=== PATIENT | male | born 1955 | race Caucasian/White ===

== ENCOUNTER 2017-03-25 04:13 | Emergency (ER) | payer SELFPAY ==
[~2017-03-25] VITALS: Ht 177.8 cm; Wt 88.5 kg
[2017-03-25] MEDS ORDERED: NS 100 ML (IVPB) BAG IV ONE (04:45)
[2017-03-25] MEDS ORDERED: IOHEXOL 350 MG/ML 100 ML (OMNIPAQUE 350) VIAL IV ONE (04:45)
--- NOTE | 2017-03-25 04:47 | ED GI ---
General Chief Complaint: Abdominal/GI Problems Stated Complaint: AB PAIN Nursing Triage Note: PAIN STARTED YESTERDAY AROUND 5P. PAIN IN RLQ AND IN THE MIDDLE OF HIS BACK. TRANSFER FROM [facility]. Sepsis Screen: No Definite Risk Source of Information: Patient Exam Limitations: No Limitations History of Present Illness Time Seen By Provider: 04:45 Initial Comments Patient developed gradual onset of right sided abdominal pain around 36 hours ago. The pain is gradually worsened and radiates to his back. It is associated with nausea and vomiting. Pain became so severe this morning that he presented to [place] [facility], was noted to have a white count of 20,000 and was referred here for CT scanning. States pain is worse with any movement. Allergies and Home Medications Allergies Coded Allergies: No Known Drug Allergies (Unverified , 03/25/17) Home Medications Oxycodone HCl/Acetaminophen 1 Each Tablet, 1-2 EACH PO Q4H PRN for PAIN-SEVERE, #15 Prescribed by: TRUMAN WILKINS on 03/25/17 0518 Review of Systems Constitutional: no symptoms reported Respiratory: No Symptoms Reported Cardiovascular: No Symptoms Reported Gastrointestinal: Abdominal Pain, Denies Diarrhea, Nausea, Vomiting Genitourinary: No Symptoms Reported Musculoskeletal: back pain Skin: no symptoms reported All Other Systems Reviewed Negative Unless Noted: Yes Past Arhlouu-Efszyi-Wyeinm Hx Patient Social History Alcohol Use: Denies Use Recreational Drug Use: No Smoking Status: Current Everyday Smoker Type Used: Cigarettes Recent Foreign Travel: No Contact w/Someone Who Travel: No Recent Infectious Disease Expo: No Recent Hopitalizations: No Cardiovascular Cardiac Disorders: High Cholesterol, Hypertension Gastrointestinal Gastrointestinal Disorders: Gastroesophageal Reflux Reviewed Nursing Assessment Reviewed/Agree w Nursing PMH: Yes Physical Exam Vital Signs VS - Last 72 Hours, by Label 03/25/17 04:19 Temp 98.4 Pulse 79 Resp 19 B/P (MAP) 175/104 Pulse Ox 96 O2 Delivery Room Air Capillary Refill : Less Than 3 Seconds General Appearance: WD/WN, no apparent distress HEENT: pharynx normal Neck: supple Respiratory: lungs clear, normal breath sounds Cardiovascular: regular rate, rhythm, no edema Gastrointestinal: soft, No guarding, No rebound, tenderness (tender right lower quadrant) Extremities: normal inspection Neurologic/Psychiatric: alert, normal mood/affect Skin: normal color, warm/dry Progress/Results/Core Measures Results/Orders My Orders Orders - TRUMAN WILKINS MD Ct Abdomen/Pelvis W (03/25/17 04:17) Iohexol Injection (Omnipaque 350 Mg/Ml 1 (03/25/17 04:45) Ns (Ivpb) (Sodium Chloride 0.9% Ivpb Bag (03/25/17 04:45) Fentanyl Injection (Sublimaze Injection (03/25/17 05:00) Ondansetron Injection (Zofran Injectio (03/25/17 05:00) Fentanyl Injection (Sublimaze Injection (03/25/17 04:55) Ondansetron Injection (Zofran Injectio (03/25/17 04:55) Alfuzosin Tablet (Uroxatral Tablet) (03/25/17 05:30) Amlodipine Tablet (Norvasc Tablet) (03/25/17 05:30) Amlodipine Tablet (Norvasc Tablet) (03/25/17 05:16) Medications Given in ED Current Medications Medications Dose Ordered Sig/Kamini Route Start Time Stop Time Status Last Admin Dose Admin Amlodipine Besylate 5 mg ONCE ONCE PO 03/25/17 05:30 03/25/17 05:31 DC 03/25/17 05:22 5 MG Fentanyl Citrate 100 mcg ONCE ONCE IVP 03/25/17 05:00 03/25/17 05:01 DC 03/25/17 05:02 100 MCG Iohexol 100 ml ONCE ONCE IV 03/25/17 04:45 03/25/17 04:47 DC 03/25/17 04:46 100 ML Ondansetron HCl 4 mg STK-MED ONCE .ROUTE 03/25/17 04:55 03/25/17 05:00 DC 03/25/17 05:02 4 MG Sodium Chloride 100 ml ONCE ONCE IV 03/25/17 04:45 03/25/17 04:47 DC 03/25/17 04:46 80 ML Vital Signs/I&O Vital Sign - Last 12Hours 03/25/17 04:19 Temp 98.4 Pulse 79 Resp 19 B/P (MAP) 175/104 Pulse Ox 96 O2 Delivery Room Air Blood Pressure Mean: [address] shows mild to moderate right-sided hydronephrosis and perinephric stranding and delayed enhancement of the right kidney. A 3 mm stone is seen in the right UVJ. The appendix is normal Departure Communication Progress Notes CT findings discussed the patient. He is much more calm after IV fentanyl. Blood pressure down to 175/95. Patient appears comfortable but his blood pressure remained elevated. I informed him to follow-up with his primary care physician regarding blood pressure management. He is also notified of the CT findings of lung nodules Impression Impression: Primary Impression: Right ureteral calculus Disposition: HOME, SELF-CARE Condition: Stable Departure-Patient Inst. Decision time for Depature: 05:17 Referrals: NO,LOCAL PHYSICIAN (PCP) Primary Care Physician Patient Instructions: Kidney Stones (DC) Scripts Oxycodone HCl/Acetaminophen (Percocet 5-325 mg Tablet) 1 Each Tablet 1-2 EACH PO Q4H Y for PAIN-SEVERE, #15 TAB Prov: TRUMAN WILKINS MD 03/25/17 TRUMAN WILKINS MD March 25, 2017 04:47
[2017-03-25] MEDS ORDERED: ONDANSETRON 4 MG/2 ML (SDV) Z0FRAN ONE (04:55)
[2017-03-25] MEDS ORDERED: fentaNYL INJECTION 100 MCG/2 ML AMP ONE (04:55)
[2017-03-25] MEDS ORDERED: ONDANSETRON 4 MG/2 ML (SDV) Z0FRAN IVP ONE (05:00)
[2017-03-25] MEDS ORDERED: fentaNYL INJECTION 100 MCG/2 ML AMP IVP ONE (05:00)
[2017-03-25] MEDS ORDERED: TAMSULOSIN 0.4 MG (FLOMAX) CAP PO ONE (05:15)
[2017-03-25] MEDS ORDERED: amLODIPine 5 MG (NORVASC) TAB ONE (05:16)
[2017-03-25] MEDS ORDERED: OXYC-197 PO (05:18)
[2017-03-25] MEDS ORDERED: ALFUZOSIN HCL 10 MG TAB (UROXATRAL) PO SCH (05:30)
[2017-03-25] MEDS ORDERED: amLODIPine 5 MG (NORVASC) TAB PO ONE (05:30)
[2017-03-25 06:01] VITALS: BP 185/99
--- NOTE | 2017-03-25 08:40 | Diagnostic Imaging Report ---
Clinical indication: Patient with right-sided abdominal/back pain onset yesterday evening. No surgical history. Patient is transferred here from [facility] for CT scan. Exam: CT scan of the abdomen and pelvis performed with 100 cc of Omnipaque 350 IV contrast. Coronal sagittal reformatted images are created. Comparison: None. Findings: There is mild bibasilar atelectasis. There is multiple small noncalcified nodules in both lung bases with the largest measuring 7 mm in the lateral left lower lobe region seen on series 2, image 9. There are small degenerative spurs involving thoracic spine and lumbar spine. There is lower lumbar spine facet arthropathy. There is a roughly 3 mm obstructive stone within the distal left ureter/UVJ region. There is associated mild to moderate right hydronephrosis with right periureteral and perinephric fat stranding. There is also delayed contrast opacification of the right kidney and delayed excretion of the right kidney suggesting significant obstruction. There are no other renal stones seen. There are subcentimeter low-density areas which are circumscribed involving both kidneys which are too small to characterize, but cyst may be considered. Otherwise both kidneys are unremarkable. The liver, spleen, pancreas, gallbladder, and adrenal glands are unremarkable. There is a small hiatal hernia seen. The colon, appendix, small bowel and remainder of the stomach is unremarkable. There is no intra-abdominal free air or free fluid. There is no significant lymphadenopathy. The bladder is partially fluid distended and unremarkable as visualized. There is diffuse gallbladder wall thickening which may be related to incomplete distention. Partially calcified prostate gland is seen. The extra-abdominal and extra pelvic soft tissue structures are unremarkable. Impression: 1: There is an obstructive 3 mm stone within the distal right ureter in the region of the UVJ. There is associated mild to moderate right hydronephrosis and right periureteral and perinephric fat stranding. 2: There is no other acute abdominal or pelvic process seen. 3: There is multiple small noncalcified nodules involving both lower lobe regions with the largest measuring 7 mm in the lateral left lung base. Followup chest CT scan in 6 months is suggested to evaluate for resolution. I agree with [employer] report. Dictated by: Dictated on workstation # [id number]
== END 2017-03-25 06:01 | disposition home or self-care (01) ==
LOC: EDUNIT# 04:13 → ER 04:15
DX: N13.2 Hydronephrosis with renal and ureteral calculous obstruction (principal); R91.8 Other nonspecific abnormal finding of lung field; I10 Essential (primary) hypertension; F17.210 Nicotine dependence, cigarettes, uncomplicated
CPT/HCPCS: 74177

== ENCOUNTER 2018-02-04 09:03 | Day surgery (SDC) | payer OTHER ==
[2018-02-04] VITALS (11 sets, daily range): BP systolic 149–174; BP diastolic 75–91
[~2018-02-04] VITALS: Ht 180.3 cm; Wt 86.2 kg
[~2018-02-04 09:03] MED LIST: OXYC-197 PO
--- OUTSIDE RECORDS SUMMARY | 2018-02-04 09:08 | XMS REPORT ---
Author Author MARIALUISA GARCIA [facility] Address [address] [place] [address] Care Team Providers Care Vacuum Tester Cans Name Role Phone MARIALUISA GARCIA Unavailable PROBLEMS Type Condition ICD9-CM Code [id number] Code Onset Dates Condition Status SNOMED Code Problem Mixed hyperlipidemia E78.2 Active 914117002 Problem Elevated platelet count D47.3 Active 206055105 Problem Hypercholesterolemia E78.0 Active 73892137 Problem Essential (primary) hypertension I10 Active 79138073 Problem Hypertension, essential I10 Active 63957201 Problem Vertigo R42 Active 776685828 ALLERGIES No Information SOCIAL HISTORY Never Assessed PLAN OF CARE VITAL SIGNS MEDICATIONS Medication Instructions Dosage Frequency Start Date End Date Duration Status Cozaar 25 mg Orally Once a day, needs an appt for further refills 1 tablet 0 days Active RESULTS No Results PROCEDURES No Known procedures IMMUNIZATIONS No Known Immunizations MEDICAL (GENERAL) HISTORY Type Description Date Medical History hypertension Medical History hyperlipidemia Medical History acid reflux
--- OUTSIDE RECORDS SUMMARY | 2018-02-04 09:09 | XMS REPORT ---
Author Author FINN LONDON [facility] Address [address] [place] [address] Care Team Providers Care Tdp Displays Analyst Name Role Phone FINN LONDON Unavailable PROBLEMS Type Condition ICD9-CM Code [id number] Code Onset Dates Condition Status SNOMED Code Problem Mixed hyperlipidemia E78.2 Active 147208721 Problem Elevated platelet count D47.3 Active 171119952 Problem Hypercholesterolemia E78.0 Active 32728970 Problem Essential (primary) hypertension I10 Active 45654460 Problem Hypertension, essential I10 Active 26714691 Problem Vertigo R42 Active 390685563 ALLERGIES No Information SOCIAL HISTORY Never Assessed PLAN OF CARE VITAL SIGNS Height 70 in 2017-03-29 Blood pressure systolic 180 mmHg 2017-03-29 Blood pressure diastolic 90 mmHg 2017-03-29 MEDICATIONS Medication Instructions Dosage Frequency Start Date End Date Duration Status Cozaar 100 MG Orally Once a day, 1/2 tablet 0 days Active Hydrochlorothiazide 12.5 MG Orally Once a day 1 tablet in the morning 24h Mar, Active Omeprazole 40 mg Orally Once a day before a meal take 1 capsule Jul, Active Norvasc 5 MG Orally Once a day 2 tablet 24h Active RESULTS No Results PROCEDURES No Known procedures IMMUNIZATIONS No Known Immunizations MEDICAL (GENERAL) HISTORY Type Description Date Medical History hypertension Medical History hyperlipidemia Medical History acid reflux
--- OUTSIDE RECORDS SUMMARY | 2018-02-04 09:09 | XMS REPORT ---
Author Author MARIALUISA GARCIA [facility] Address [address] [place] [address] Care Team Providers Care Side Sawyer Name Role Phone MARIALUISA GARCIA Unavailable PROBLEMS Type Condition ICD9-CM Code BER31-DD Code Onset Dates Condition Status SNOMED Code Problem Abnormal CBC R79.89 Active 297617548 Problem Essential (primary) hypertension I10 Active 92754568 Problem Lymphocytosis D72.820 Active 01858405 Problem Monocytosis D72.821 Active 64828151 Problem Right leg claudication I73.9 Active 727140256 Problem Mixed hyperlipidemia E78.2 Active 938919900 Problem Vertigo R42 Active 746684156 Problem Hypercholesterolemia E78.0 Active 81275443 Problem Elevated platelet count D47.3 Active 404949818 Problem Hypertension, essential I10 Active 25543850 ALLERGIES No Information ENCOUNTERS Encounter Location Date Diagnosis [facility] [place] [id number] [id number] [id number] Dec, Hypertension, essential I10 ; Mixed hyperlipidemia E78.2 ; Dyspnea on exertion R06.09 and Tobacco use Z72.[address] [id number][place] [id number] Dec, [id number] [id number] Dec, [address] [id number] [id number] Nov, Dyspnea on exertion R06.09 ; Vasovagal syncope R55 ; Hypertension , essential I10 ; Mixed hyperlipidemia E78.2 ; Right leg claudication I73.9 and Tobacco use Z72.[address] [id number][place] [id number] Nov, [place] [id number] [place] [address] [id number] Oct, Hypertension, essential I10 [facility] [place] [id number] [place] [address] [id number] Sep, Abnormal CBC R79.89 ; Monocytosis D72.821 and Lymphocytosis D72.820 [facility] [id number] [place] [address] [id number] Sep, Abnormal CBC R79.89 ; Monocytosis D72.821 and Lymphocytosis D72.820 [facility] [place] [id number] [place] [address] [id number] Sep, Hypertension, essential I10 ; Mixed hyperlipidemia E78.2 ; Dizziness R42 ; Tobacco abuse Z72.0 and Tobacco abuse counseling Z71.6 [facility] [place] [address] [id number] Sep, Hypertension, essential I10 [facility] [place] [id number] [place] [address] [id number] Aug, Mixed hyperlipidemia E78.2 [facility] [place] [id number] [place] [address] [id number] Jul, [facility] [place] [id number] [place] [address] [id number] Jun, Hypertension, essential I10 [facility] [place] [id number] [place] [address] [id number] Jun, Hypertension, essential I10 [facility] [place] [id number] [place] [address] [id number] May, [facility] [place] [id number] [place] [address] [id number] May, Hypertension, essential I10 and Mixed hyperlipidemia E78.2 [facility] [place] [id number] [place] [address] [id number] Apr, [facility] [address] [id number] Mar, [facility] [id number] [place] [address] [id number] Mar, [facility] [address] [id number] Mar, [facility] [address] [id number][place] [id number] Mar, [facility] [id number] [place] [address] [id number] February, Mixed hyperlipidemia E78.2 [facility] [address] [id number] [place] [id number] February, [facility] [address] [id number] [place] [address] [id number] February, [facility] [address] [id number] [place] [id number] February, Hypertension, essential I10 ; Mixed hyperlipidemia E78.2 and Heartburn R12 [facility] [address] [id number] [place] [address] [id number] February, [facility] [address] [id number] [place] [address] [id number] February, Hypertension, essential I10 [facility] [id number] [place] [address] [id number] Jan, [facility] [address] [id number] [place] [address] [id number] Jan, [facility] [id number] [place] [address] [id number] Dec, Mixed hyperlipidemia E78.2 [facility] [place] [id number] [place] [address] [id number] Nov, Heartburn R12 [facility] [place] [id number] [place] [address] [id number] Sep, [facility] [id number] [place] [address] [id number] Sep, Hypertension, essential I10 ; Mixed hyperlipidemia E78.2 ; Heartburn R12 and Elevated platelet count D47.3 [facility] [id number] [place] [address] [id number] Aug, [facility] [id number] [place] [address] [id number] Jul, [facility] [address] [place] [address] [id number] [place] [address] [id number] Jul, Hypertension, essential I10 ; Vertigo R42 ; Elevated platelet count D47.3 and Elevated glucose level R73.09 [facility] [id number] [place] [address] [id number] Jun, Hypertension, essential I10 ; Hypercholesterolemia E78.0 ; Vertigo R42 ; Heartburn R12 ; Elevated platelet count D47.3 and Elevated glucose level R73.09 [facility] [id number] [place] [address] [id number] Jun, [facility] [id number] [place] [address] May, [facility] [id number] [place] [address] [id number] May, [facility] [address] [id number] May, [facility] [id number] [place] [address] [id number] Apr, [facility] [address] [id number] Mar, [facility] [id number] [place] [address] [id number] Mar, [facility] [address] [id number] Mar, Hypertension, essential I10 and Hypercholesterolemia E78.0 [facility] [id number] [place] [address] [id number] Dec, Hypertension, essential I10 [facility] [id number] [place] [address] [id number] Sep, [facility] [id number] [place] [address] [id number] Sep, Essential (primary) hypertension I10 [facility] [address] [id number] Sep, Hypertension, essential I10 [facility] [id number] [place] [address] [id number] Sep, Hypertension, essential I10 [facility] [id number] [place] [address] [id number] Aug, [facility] [address] [id number], [place] [id number] Jul, [facility] [address] [id number], [place] [id number] Jul, [facility] [address] [id number], [place] [id number] Jul, Hypertension, essential I10 [facility] [address] [id number], [place] [id number] Jul, [facility] [address] [id number], [place] [id number] Jun, [facility] [id number] [place] [address] [id number] May, [facility] [id number] [place] [address] [id number] Mar, Pharyngitis 462 [facility] [address] [id number], [place] [id number] Mar, [facility] [address] [id number], [place] [id number] Mar, [facility] [address] [id number], [place] [id number] Mar, Right low back pain 724.2 [facility] [address] [id number], [place] [id number] February, [facility] [address] [place] [id number], [place] [id number] February, [facility] [id number], [place] [id number] February, [facility] [address] [id number], [place] [id number] February, [facility] [address] [id number] [address] Jan, [facility] [address]00565100[place], [place] [address] Jan, [facility] [address] [id number], [place] [id number] Nov, [facility] [place] [facility] [address] [facility] [id number][place] [address] Nov, [facility] [address] [facility] [id number] [place] [id number] Sep, [facility] [place] [facility] [address] [facility] [id number][place] [address]46 Sep, [facility] [address] [facility] [id number], [place] [id number] Sep, [facility] [place] [facility] [address] [facility] [id number], [place] [address]- 5195 Sep, [facility] [address] [facility] [id number], [place] [id number] Aug, [facility] [place] [facility] [address] [id number] [address] Aug, [facility] [address] [facility] [id number], [place] [id number] Aug, [facility] [place] [facility] [address] [facility] [id number], [place] [address]- 4[address] Aug, [facility] [place] [facility] [address] [facility] [id number], [place] [address]- 98[address] Aug, [facility] [address] [facility] [id number], [place] [id number] Aug, [facility] [place] [facility] [address] [facility] [id number], [place] [address]- 9716 Aug, [facility] [address] [facility] [id number], [place] [id number] Jul, [facility] [place] [facility] [address] [facility] [id number], [place] [address]- 4544 Jul, [facility] [address] [id number], [place] [id number] Jul, [facility] [address] [facility] [id number], [place] [id number] Jul, [facility] [place] [facility] [address] [facility] [id number][place] [address] Jul, [facility] [place] [facility] [address] [id number] [place] 494[place]- 7700 Jul, [facility] [address] [id number] [place] [id number] Jul, [facility] [place] [facility] [address] [facility] [id number][place] 396039- 1281 Jul, [facility] [place] [facility] [address] [facility] [id number] [place] [address]- 2029 Jul, [facility] [address] [id number] [place] [id number] Jul, [facility] [address] [id number] [place] [id number] Jul, [facility] [place] [facility] [address] [facility] [id number] [place] 559[place]- 7792 Jul, [facility] [address] [id number] [place] [id number] Jun, [facility] [place] [facility] [address] [facility] [id number], [place] [address]- 5[address] 30 Jun, 2014 [facility] [address] [id number] [place] [id number] Jun, [facility] [place] [facility] [address] [facility] [id number][place] [address]- 9509 Jun, [facility] [address] [id number], [place] [id number] 16 Jun, 2014 [facility] [place] [facility] [address] [facility] [id number], [place] [address]- 9017 16 Jun, 2014 [facility] [place] [facility] [address] [facility] [id number] [place] [address]- 0333 15 Jun, 2014 [facility] [address] [id number], [place] [id number] 15 Jun, 2014 [facility] [address] [id number], [place] [id number] Jun, [facility] [place] [facility] [address] [facility] [id number], [place] [address]- 5129 Jun, [facility] [address] [facility] [id number], [place] [id number] Jun, [facility] [address] [facility] [id number], [place] [address]- [address] Jun, [facility] [address] [facility] [id number], [place] [id number] May, [facility] [address]00565100[place], [place] [address]- [address] May, [facility] [address] [facility] [id number], [place] [id number] May, [facility] [address] [facility] [id number][place] [address]- [address]23 May, [facility] [place] [address] [id number], [place] [id number] Apr, [facility] [address]00565100[place], [place] [address] Apr, [facility] [place] [id number], [place] [id number] Apr, [facility] [address]00565100[place], [place] 219[place]- [address]95 Apr, [facility] [address] [id number], [place] [id number] Apr, [facility] [address] [id number] [address]- 7[address] Apr, [facility] [place] [address] [id number], [place] [id number] Apr, [facility] [address] [facility] [id number][place] [address]- 1226 Apr, [facility] [address] [id number], [place] [id number] Mar, [facility] [address] [id number], [place] [address]- 35[address] Mar, IMMUNIZATIONS No Known Immunizations SOCIAL HISTORY Never Assessed REASON FOR VISIT Blood pressure check KJones RN PLAN OF CARE VITAL SIGNS Height 70 in 2017-04-25 Blood pressure systolic 122 mmHg 2017-04-25 Blood pressure diastolic 68 mmHg 2017-04-25 MEDICATIONS Unknown Medications RESULTS No Results PROCEDURES No Known procedures INSTRUCTIONS MEDICATIONS ADMINISTERED No Known Medications MEDICAL (GENERAL) HISTORY Type Description Date Medical History hypertension Medical History hyperlipidemia Medical History acid reflux
--- OUTSIDE RECORDS SUMMARY | 2018-02-04 09:09 | XMS REPORT ---
Author Author MARIALUISA GARCIA [facility] Address [address] [place] [address] Care Team Providers Care It Architect Name Role Phone MARIALUISA GARCIA Unavailable PROBLEMS Type Condition ICD9-CM Code TXO26-TW Code Onset Dates Condition Status SNOMED Code Problem Mixed hyperlipidemia E78.2 Active 555778978 Problem Elevated platelet count D47.3 Active 170691486 Problem Hypercholesterolemia E78.0 Active 97105651 Problem Essential (primary) hypertension I10 Active 46800639 Problem Hypertension, essential I10 Active 24410274 Problem Vertigo R42 Active 863625745 ALLERGIES No Information SOCIAL HISTORY Never Assessed PLAN OF CARE VITAL SIGNS MEDICATIONS Medication Instructions Dosage Frequency Start Date End Date Duration Status Norvasc 5 MG Orally Once a day 2 tablet 24h Active RESULTS No Results PROCEDURES No Known procedures IMMUNIZATIONS No Known Immunizations MEDICAL (GENERAL) HISTORY Type Description Date Medical History hypertension Medical History hyperlipidemia Medical History acid reflux
--- OUTSIDE RECORDS SUMMARY | 2018-02-04 09:09 | XMS REPORT ---
Author Author [facility] Address [address] [place] [address] Care Team Providers Care Icd 9 Coder Name Role Phone DUC LOPEZ Unavailable PROBLEMS Type Condition ICD9-CM Code EFE76-TG Code Onset Dates Condition Status SNOMED Code Problem Abnormal CBC R79.89 Active 278618425 Problem Essential (primary) hypertension I10 Active 82355708 Problem Lymphocytosis D72.820 Active 20673424 Problem Monocytosis D72.821 Active 40429012 Problem Right leg claudication I73.9 Active 710531603 Problem Mixed hyperlipidemia E78.2 Active 102021712 Problem Vertigo R42 Active 628362607 Problem Hypercholesterolemia E78.0 Active 86862163 Problem Elevated platelet count D47.3 Active 600564068 Problem Hypertension, essential I10 Active 06499639 ALLERGIES No Information ENCOUNTERS Encounter Location Date Diagnosis [facility] [address] [id number] [id number] Dec, [place] [id number] [address] Dec, [place] [id number] [id number] Dec, [facility] [id number] [place] [address] [id number] Nov, Dyspnea on exertion R06.09 ; Vasovagal syncope R55 ; Hypertension , essential I10 ; Mixed hyperlipidemia E78.2 ; Right leg claudication I73.9 and Tobacco use Z72.0 [facility] [id number][place] [id number] Nov, [facility] [address] [id number] [address] Oct, Hypertension, essential I10 [place] [address] [id number] Sep, Abnormal CBC R79.89 ; Monocytosis D72.821 and Lymphocytosis D72.820 [facility] [address] [id number] Sep, Abnormal CBC R79.89 ; Monocytosis D72.821 and Lymphocytosis D72.820 [facility] [address] [id number] Sep, Hypertension, essential I10 ; Mixed hyperlipidemia E78.2 ; Dizziness R42 ; Tobacco abuse Z72.0 and Tobacco abuse counseling Z71.6 [facility] [address] [id number] Sep, Hypertension, essential I10 [facility] [address] [id number] Aug, Mixed hyperlipidemia E78.2 [place] [address] [id number] Jul, [facility] [address] [id number] Jun, Hypertension, essential I10 [facility] [address] [place] [id number] [place] [address] [id number] Jun, Hypertension, essential I10 [facility] [address] [id number] May, [place] [address] [id number] May, Hypertension, essential I10 and Mixed hyperlipidemia E78.2 [facility] [address] [id number] Apr, [facility] [address] [place] [id number] [place] [address] [id number] Mar, [facility] [address] [id number] Mar, [facility] [address] [place] [id number] [place] [address] [id number] Mar, [facility] [address] [id number] Mar, [facility] [address] [id number] [place] [id number] February, Mixed hyperlipidemia E78.2 [facility] [address] [id number] [place] [address] February, [facility] [address] [id number] [place] [id number] February, [facility] [address] [id number] [place] [address] February, Hypertension, essential I10 ; Mixed hyperlipidemia E78.2 and Heartburn R12 [facility] [address] [id number] [place] [id number] February, [facility] [address] [id number] [place] 7325[address] February, Hypertension, essential I10 [facility] [address] [id number] [place] [id number] Jan, [facility] [address] [id number] [place] [id number] Jan, [facility] [address] [id number] [place] [address] Dec, Mixed hyperlipidemia E78.2 [facility] [address] [id number] [place] [address] Nov, Heartburn R12 [facility] [address] [id number] [place] [id number] Sep, [facility] [id number] [place] [address] [id number] Sep, Hypertension, essential I10 ; Mixed hyperlipidemia E78.2 ; Heartburn R12 and Elevated platelet count D47.3 [facility] [address] [id number] [place] [id number] Aug, [facility] [address] [id number] [place] [id number] Jul, [facility] [address] [id number] [place] [address] Jul, Hypertension, essential I10 ; Vertigo R42 ; Elevated platelet count D47.3 and Elevated glucose level R73.09 [facility] [id number] [place] [address] [id number] Jun, Hypertension, essential I10 ; Hypercholesterolemia E78.0 ; Vertigo R42 ; Heartburn R12 ; Elevated platelet count D47.3 and Elevated glucose level R73.09 [facility] [id number] [place] [id number], [facility] [address] [place] [id number] [place] [address] May, [facility] [address] [place] [id number] [place] [address] [id number] May, [facility] [address] [place] [id number] [place] [address] [id number] May, [facility] [address] [place] [id number] [place] [address] [id number] Apr, [facility] [address] [place] [id number] [place] [address] [id number] Mar, [facility] [address] [place] [id number] [place] [address] [id number] Mar, [facility] [address] [place] [id number] [place] [address] [id number] Mar, Hypertension, essential I10 and Hypercholesterolemia E78.0 [facility] [address] [place] [id number] [place] [address] [id number] Dec, Hypertension, essential I10 [facility] [address] [place] [id number] [place] [address] [id number] Sep, [facility] [address] [place] [id number] [place] [address] [id number] Sep, Essential (primary) hypertension I10 [facility] [address] [place] [id number] [place] [address] [id number] Sep, Hypertension, essential I10 [facility] [address] [place] [id number] [place] [address] [id number] Sep, Hypertension, essential I10 [facility] [id number] [place] [address] [id number] Aug, [facility] [address] [place] [id number] [place] [address] [id number] Jul, [facility] [address] [id number], [place] 518[address] Jul, [facility] [address] [id number], [place] [id number] Jul, Hypertension, essential I10 [facility] [address] [id number], [place] [id number] Jul, [facility] [address] [id number], [place] [id number] Jun, [facility] [address] [id number], [place] 789859849 May, [facility] [id number] [place] [address] [id number] Mar, Pharyngitis 462 [facility] [address] [id number], [place] 084235639 Mar, [facility] [address] [id number], [place] [id number] Mar, [facility] [address] [id number], [place] [id number] Mar, Right low back pain 724.2 [facility] [address] [id number], [place] [id number] February, [facility] [address] [id number], [place] [id number] February, [facility] [address] [id number], [place] 910448688 February, [facility] [id number], [place] 922866938 February, [facility] [address], [place] [address] Jan, [facility] [address] [place] [id number] [place] [address] Jan, [facility] [id number], [place] [id number] Nov, [facility] [address] [place] [id number] [place] [address]- [address] Nov, [facility] [address] [id number] [place] [id number] Sep, [facility] [address] [facility] [id number], [place] [address] Sep, [facility] [address] [id number] [place] 869646838 Sep, [facility] [address] [facility] [id number], [place] [address] Sep, [facility] [address] [id number] [place] [id number] Aug, [facility] [address] [facility] [id number], [place] [address]- [address] Aug, [facility] [address] [facility] [id number], [place] [id number] Aug, [facility] [address] [facility] [id number], [place] [address]- [address] Aug, [facility] [address] [facility] [id number], [place] 551784- [address] Aug, [facility] [address] [facility] [id number] [place] [id number] Aug, [facility] [address] [facility] [id number], [place] 0088[place]- [address] Aug, [facility] [address] [facility] [id number], [place] [id number] Jul, [facility] [address] [facility] [id number], [place] [address]- 8[address] Jul, [facility] [address] [facility] [id number], [place] [id number] Jul, [facility] [address] [facility] [id number] [place] [id number] Jul, [facility] [address] [facility] [id number], [place] 809[place]- 27[address] Jul, [facility] [address] [facility] [id number], [place] 568116- 5277 Jul, [facility] [address] [facility] [id number], [place] 150724432 Jul, [facility] [address] [facility] [id number], [place] [address]- 8846 Jul, [facility] [address] [facility] [id number], [place] [address]- 68[address] Jul, [facility] [address] [facility] [id number] [place] 3004388[address] Jul, [facility] [address] [facility] [id number], [place] [id number] Jul, [facility] [address] [facility] [id number], [place] 794391- 1181 Jul, [facility] [address] [facility] [id number], [place] 112659450 Jun, [facility] [address]00565100[place], [place] [address]- 8[address] Jun, [facility] [address] [facility] [id number], [place] [id number] Jun, [facility] [address] [facility] [id number], [place] [address]- 8[address] Jun, [facility] [address] [facility] [id number], [place] 188217156 16 Jun, 2014 [facility] [address] [facility] [id number], [place] [address]- 2408 Jun, [facility] [address] [facility] [id number], [place] [address]- [address] 15 Jun, 2014 [facility] [address] [facility] [id number], [place] [id number] 15 Jun, 2014 [facility] [address] [facility] [id number], [place] 517515989 Jun, [facility] [address] [facility] [id number], [place] 206676- [address] 12 Jun, 2014 [facility] [address] [facility] [id number], [place] [id number] Jun, [facility] [address] [facility] [id number], [place] [address]- [address] Jun, [facility] [address] [facility] [id number], [place] [id number] May, [facility] [address]00565100[place], [place] [address]- [address] May, [facility] [address] [place] [id number], [place] [id number] May, [facility] [address]00565100[place], [place] [address]- [address] May, [facility] [id number], [place] [id number] Apr, [facility] [address]00565100[place], [place] [address]- [address] Apr, [facility] [id number], [place] 861125512 Apr, [facility] [address]00565100[place], [place] 480[address]86- 135[address] Apr, [facility] [address] [facility] [id number], [place] [id number] Apr, [facility] [address]00565100[place], [place] 9813[place]- [address] Apr, [facility] [address] [place] [id number], [place] 745823078 Apr, [facility] [address] [place] [id number], [place] 9250[place]- [address] Apr, [facility] [address] [facility] [id number], [place] [id number] Mar, [facility] [address]00565100[place], [place] [address]- [address] Mar, IMMUNIZATIONS No Known Immunizations SOCIAL HISTORY Never Assessed REASON FOR VISIT Blood Pressure Adrian NARAYANAN PLAN OF CARE VITAL SIGNS Height 70 in 2017-04-19 Blood pressure systolic 110 mmHg 2017-04-19 Blood pressure diastolic 68 mmHg 2017-04-19 MEDICATIONS Unknown Medications RESULTS No Results PROCEDURES No Known procedures INSTRUCTIONS MEDICATIONS ADMINISTERED No Known Medications MEDICAL (GENERAL) HISTORY Type Description Date Medical History hypertension Medical History hyperlipidemia Medical History acid reflux
--- OUTSIDE RECORDS SUMMARY | 2018-02-04 09:09 | XMS REPORT ---
Author Author MARIALUISA GARCIA [facility] Address [address] [place] [address] Care Team Providers Care Cpht Name Role Phone MARIALUISA GARCIA Unavailable PROBLEMS Type Condition ICD9-CM Code OBB57-RR Code Onset Dates Condition Status SNOMED Code Problem Mixed hyperlipidemia E78.2 Active 413280773 Problem Elevated platelet count D47.3 Active 678114583 Problem Hypercholesterolemia E78.0 Active 39381874 Problem Essential (primary) hypertension I10 Active 78940229 Problem Hypertension, essential I10 Active 26640571 Problem Vertigo R42 Active 988893387 ALLERGIES Unknown Allergies SOCIAL HISTORY No smoking Hx information available PLAN OF CARE VITAL SIGNS Height 70 in 2016-10-18 Blood pressure systolic 136 mmHg 2016-10-18 Blood pressure diastolic 80 mmHg 2016-10-18 MEDICATIONS Unknown Medications RESULTS No Results PROCEDURES No Known procedures IMMUNIZATIONS No Known Immunizations
--- OUTSIDE RECORDS SUMMARY | 2018-02-04 09:10 | XMS REPORT ---
Author Author FINN LONDON [facility] Address [address] [place] [address] Care Team Providers Care Senior C Software Engineer Name Role Phone LONDON, FINN Unavailable PROBLEMS Type Condition ICD9-CM Code ONX84-ZO Code Onset Dates Condition Status SNOMED Code Problem Abnormal CBC R79.89 Active 848679502 Problem Essential (primary) hypertension I10 Active 39160037 Problem Lymphocytosis D72.820 Active 05667318 Problem Monocytosis D72.821 Active 71192488 Problem Right leg claudication I73.9 Active 139221209 Problem Mixed hyperlipidemia E78.2 Active 288305024 Problem Vertigo R42 Active 988833185 Problem Hypercholesterolemia E78.0 Active 27266341 Problem Elevated platelet count D47.3 Active 632301206 Problem Hypertension, essential I10 Active 74953388 ALLERGIES No Information ENCOUNTERS Encounter Location Date Diagnosis [id number] [id number] [id number] Dec, [address] [id number] [id number] Dec, [address] [id number][place] [id number] Nov, Dyspnea on exertion R06.09 ; Vasovagal syncope R55 ; Hypertension , essential I10 ; Mixed hyperlipidemia E78.2 ; Right leg claudication I73.9 and Tobacco use Z72.[address] [id number], [place] [id number] Nov, [address] [place] [address] [id number] Oct, Hypertension, essential I10 [address] [id number][place] [id number] Sep, Abnormal CBC R79.89 ; Monocytosis D72.821 and Lymphocytosis D72.820 [facility] [id number] [place] [address] [id number] Sep, Abnormal CBC R79.89 ; Monocytosis D72.821 and Lymphocytosis D72.820 [facility] [id number] [place] [address] [id number] Sep, Hypertension, essential I10 ; Mixed hyperlipidemia E78.2 ; Dizziness R42 ; Tobacco abuse Z72.0 and Tobacco abuse counseling Z71.6 [facility] [id number] [place] [address] [id number] Sep, Hypertension, essential I10 [facility] [address] [id number] Aug, Mixed hyperlipidemia E78.2 [facility] [address] [id number] Jul, [facility] [address] [id number] Jun, Hypertension, essential I10 [facility] [id number] [place] [address] [id number] Jun, Hypertension, essential I10 [facility] [id number] [place] [address] [id number] May, [facility] [id number] [place] [address] [id number] May, Hypertension, essential I10 and Mixed hyperlipidemia E78.2 [facility] [id number] [place] [address] [id number] Apr, [facility] [id number] [place] [address] [id number] Mar, [facility] [id number] [place] [address] [id number] Mar, [facility] [address] [id number] Mar, [facility] [id number] [place] [address] [id number] Mar, [facility] [id number] [place] [address] [id number] February, Mixed hyperlipidemia E78.2 [facility] [address] [id number], [place] [phone] February, [facility] [id number] [place] [address] [id number] February, [facility] [address] [id number] [place] [id number] February, Hypertension, essential I10 ; Mixed hyperlipidemia E78.2 and Heartburn R12 [facility] [id number] [place] [address] [id number] February, [facility] [address] [id number] [place] [id number] February, Hypertension, essential I10 [facility] [id number] [place] [address] [id number] Jan, [facility] [address] [id number] [place] [id number] Jan, [facility] [id number] [place] [address] [id number] Dec, Mixed hyperlipidemia E78.2 [facility] [id number] [place] [address] [id number] Nov, Heartburn R12 [facility] [address] [id number] [place] [address] [id number] Sep, [facility] [id number] [place] [address] [id number] Sep, Hypertension, essential I10 ; Mixed hyperlipidemia E78.2 ; Heartburn R12 and Elevated platelet count D47.3 [facility] [id number], [place] [id number] Aug, [facility] [id number], [place] [id number] Jul, [facility] [id number] [place] [address] [id number] Jul, Hypertension, essential I10 ; Vertigo R42 ; Elevated platelet count D47.3 and Elevated glucose level R73.09 [facility] [id number] [place] [address] [id number] Jun, Hypertension, essential I10 ; Hypercholesterolemia E78.0 ; Vertigo R42 ; Heartburn R12 ; Elevated platelet count D47.3 and Elevated glucose level R73.09 [facility] [id number], [place] [id number] Jun, [facility] [address] [place] [address] May, [facility] [id number] [place] [address] [id number] May, [facility] [id number] [place] [address] [id number] May, [facility] [id number] [place] [address] [id number] Apr, [facility] [id number] [place] [address] [id number] Mar, [facility] [id number] [place] [address] [id number] Mar, [facility] [id number] [place] [address] [id number] Mar, Hypertension, essential I10 and Hypercholesterolemia E78.0 [facility] [id number] [place] [address] [id number] Dec, Hypertension, essential I10 [facility] [id number] [place] [address] [id number] Sep, [facility] [id number] [place] [address] [id number] Sep, Essential (primary) hypertension I10 [facility] [id number] [place] [address] [id number] Sep, Hypertension, essential I10 [facility] [id number] [place] [address] [id number] Sep, Hypertension, essential I10 [facility] [id number] [place] [address] [id number] Aug, [facility] [id number] [place] [address] [id number] Jul, [facility] [id number] [place] [address] [id number] Jul, [facility] [address] [id number], [place] [id number] Jul, Hypertension, essential I10 [facility] [address] [id number] [place] [id number] Jul, [facility] [address] [id number], [place] [phone] Jun, [facility] [address] [id number] [place] [id number] May, [facility] [address] [id number], [place] [id number] Mar, Pharyngitis 462 [facility] [address] [id number] [place] [id number] Mar, [facility] [address] [id number], [place] [id number] Mar, [facility] [address] [id number], [place] [id number] Mar, Right low back pain 724.2 [facility] [address] [id number], [place] [phone] February, [facility] [address] [id number], [place] [phone] February, [facility] [address] [id number], [place] [phone] February, [facility] [address] [id number], [place] [id number] February, [facility] [address]00565100[place], [place] [address] Jan, [facility] [address]00565100[place], [place] [address] Jan, [facility] [address] [id number], [place] [phone] Nov, [facility] [address]00565100[place], [place] [address] Nov, [facility] [id number], [place] [id number] Sep, [facility] [address] [id number], [place] [address] Sep, [facility] [address] [facility] [id number] [place] [id number] Sep, [facility] [place] [facility] [address] [facility] [id number] [place] [address] Sep, [facility] [address] [facility] [id number] [place] [id number] Aug, [facility] [place] [facility] [address] [facility] [address] [facility] [id number], [place] [address] Aug, [facility] [address] [facility] [id number] [place] [id number] Aug, [facility] [place] [facility] [address] [facility] [facility] [id number], [place] [address] Aug, [facility] [place] [facility] [address] [facility] [address] [facility] [id number], [place] [address] Aug, [facility] [address] [facility] [id number], [place] [id number] Aug, [facility] [place] [facility] [address] [facility] [facility] [id number], [place] [address] Aug, [facility] [address] [facility] [id number], [place] [id number] Jul, [facility] [place] [facility] [address] [facility] [facility] [id number], [place] [address] Jul, [facility] [address] [id number], [place] [phone] Jul, [facility] [address] [id number], [place] [id number] Jul, [facility] [place] [facility] [address] [facility] [address] [facility] [id number], [place] [address] Jul, [facility] [place] [facility] [address] [facility] [address] [facility] [id number], [place] [address] Jul, [facility] [address] [facility] [id number], [place] [phone] Jul, [facility] [place] [facility] [address] [facility] [address] [facility] [id number], [place] [address] Jul, [facility] [place] [facility] [address] [facility] [facility] [id number] [place] [address]- [address] Jul, [facility] [address] [id number] [place] [id number] Jul, [facility] [address] [facility] [id number] [place] [id number] Jul, [facility] [place] [facility] [address] [facility] [facility] [id number], [place] [address]- [address] Jul, [facility] [address] [facility] [id number] [place] [id number] Jun, [facility] [place] [facility] [address] [facility] [address] [facility] [id number], [place] [address] Jun, [facility] [address] [facility] [id number] [place] [id number] Jun, [facility] [place] [facility] [address] [facility] [address] [facility] [id number], [place] [address]- [address] Jun, [facility] [address] [facility] [id number] [place] [id number] 16 Jun, 2014 [facility] [place] [facility] [address] [facility] [address] [facility] [id number], [place] [address]- [address] Jun, [facility] [place] [facility] [address] [facility] [address] [facility] [id number], [place] [address]- [address] 15 Jun, 2014 [facility] [address] [facility] [id number], [place] [id number] 15 Jun, 2014 [facility] [address] [facility] [id number] [place] [id number] Jun, [facility] [place] [facility] [address] [facility] [address] [facility] [id number] [place] [address]- [address] Jun, [facility] [address] [facility] [id number] [place] [id number] Jun, [facility] [place] [facility] [address] [facility] [address] [facility] [id number], [place] [address]- [address] 05 Jun, 2014 [facility] [address] [facility] [id number], [place] [id number] May, [facility] [address] [address] [facility] [id number], [place] [address]- [address] May, [facility] [address] [facility] [id number], [place] [phone] May, [facility] [address]00565100[place], [place] [address] May, [facility] [address] [facility] [id number], [place] [phone] Apr, [facility] [address] [facility] [address] [facility] [id number], [place] [address]- [address] Apr, [facility] [address] [facility] [id number], [place] [id number] Apr, [facility] [address]00565100[place], [place] [address]- [address] Apr, [facility] [id number], [place] [id number] Apr, [facility] [address]00565100[place], [place] [address]- [address] Apr, [facility] [address] [id number], [place] [id number] Apr, [facility] [address] [id number] [address]- [address] Apr, [facility] [address] [id number], [place] [id number] Mar, [facility] [address] [id number], [place] [address] Mar, IMMUNIZATIONS No Known Immunizations SOCIAL HISTORY Never Assessed REASON FOR VISIT Blood Pressure Adrian NARAYANAN PLAN OF CARE VITAL SIGNS Height 70 in 2017-04-03 Blood pressure systolic 150 mmHg 2017-04-03 Blood pressure diastolic 88 mmHg 2017-04-03 MEDICATIONS Medication Instructions Dosage Frequency Start Date End Date Duration Status Norvasc 5 MG Orally Once a day 2 tablet 24h Active Cozaar 100 mg Orally Once a day, 1 tablet Active Hydrochlorothiazide 25 MG Orally Once a day 1 tablet in the morning 24h Mar, Active Omeprazole 40 mg Orally Once a day before a meal take 1 capsule Jul, Active RESULTS No Results PROCEDURES No Known procedures INSTRUCTIONS MEDICATIONS ADMINISTERED No Known Medications MEDICAL (GENERAL) HISTORY Type Description Date Medical History hypertension Medical History hyperlipidemia Medical History acid reflux
--- OUTSIDE RECORDS SUMMARY | 2018-02-04 09:10 | XMS REPORT ---
Author Author MARIALUISA GARCIA [facility] Address [address] [place] [address] Care Team Providers Care Production Foreman Name Role Phone MARIALUISA GARCIA Unavailable PROBLEMS Type Condition ICD9-CM Code MZY37-HH Code Onset Dates Condition Status SNOMED Code Problem Mixed hyperlipidemia E78.2 Active 890079567 Problem Elevated platelet count D47.3 Active 606357533 Problem Hypercholesterolemia E78.0 Active 36227156 Problem Essential (primary) hypertension I10 Active 57772535 Problem Hypertension, essential I10 Active 93291829 Problem Vertigo R42 Active 766907248 ALLERGIES No Information SOCIAL HISTORY Never Assessed PLAN OF CARE VITAL SIGNS Height 70 in 2017-03-18 Blood pressure systolic 140 mmHg 2017-03-18 Blood pressure diastolic 82 mmHg 2017-03-18 MEDICATIONS Medication Instructions Dosage Frequency Start Date End Date Duration Status Simvastatin 40 mg Orally Once a day 1 tablet in the evening 24h Mar, Active Omeprazole 40 mg Orally Once a day before a meal take 1 capsule Jul, Active Cozaar 100 MG Orally Once a day, 1/2 tablet 0 days Active Norvasc 5 MG Orally Once a day 2 tablet 24h Active RESULTS No Results PROCEDURES No Known procedures IMMUNIZATIONS No Known Immunizations MEDICAL (GENERAL) HISTORY Type Description Date Medical History hypertension Medical History hyperlipidemia Medical History acid reflux
--- OUTSIDE RECORDS SUMMARY | 2018-02-04 09:10 | XMS REPORT ---
Author Author MARIALUISA GARCIA [facility] Address [address] [place] [address] Care Team Providers Care Outside Upholsterer Name Role Phone MARIALUISA GARCIA Unavailable PROBLEMS Type Condition ICD9-CM Code VYS52-CD Code Onset Dates Condition Status SNOMED Code Problem Mixed hyperlipidemia E78.2 Active 290087709 Problem Elevated platelet count D47.3 Active 199389016 Problem Hypercholesterolemia E78.0 Active 73230699 Problem Essential (primary) hypertension I10 Active 38169909 Problem Hypertension, essential I10 Active 64292234 Problem Vertigo R42 Active 745821304 ALLERGIES No Information SOCIAL HISTORY Never Assessed PLAN OF CARE VITAL SIGNS Height 70 in 2017-03-19 Blood pressure systolic 170 mmHg 2017-03-19 Blood pressure diastolic 80 mmHg 2017-03-19 MEDICATIONS Unknown Medications RESULTS No Results PROCEDURES No Known procedures IMMUNIZATIONS No Known Immunizations MEDICAL (GENERAL) HISTORY Type Description Date Medical History hypertension Medical History hyperlipidemia Medical History acid reflux
--- OUTSIDE RECORDS SUMMARY | 2018-02-04 09:10 | XMS REPORT ---
Author Author MARIALUISA GARCIA [facility] Address [address] [place] [address] Care Team Providers Care Surgical Technology Instructor Name Role Phone MARIALUISA GARCIA Unavailable PROBLEMS Type Condition ICD9-CM Code LGZ04-SD Code Onset Dates Condition Status SNOMED Code Problem Mixed hyperlipidemia E78.2 Active 360807789 Problem Elevated platelet count D47.3 Active 184521252 Problem Hypercholesterolemia E78.0 Active 35716075 Problem Essential (primary) hypertension I10 Active 23299067 Problem Hypertension, essential I10 Active 38576783 Problem Vertigo R42 Active 857221212 ALLERGIES Substance Reaction Event Type Date Status N.K.D.A. Unknown Non Drug Allergy Sep, Unknown SOCIAL HISTORY No smoking Hx information available PLAN OF CARE Activity Details Follow Up 3 Months Reason:CHM HTN and pending labs VITAL SIGNS Height 70 in 2016-10-15 Weight 196.0 lbs 2016-10-15 Temperature 97.7 degrees Fahrenheit 2016-10-15 Heart Rate 78 bpm 2016-10-15 Respiratory Rate 18 2016-10-15 BMI 28.12 kg/m2 2016-10-15 Blood pressure systolic 160 mmHg 2016-10-15 Blood pressure diastolic 80 mmHg 2016-10-15 MEDICATIONS Medication Instructions Dosage Frequency Start Date End Date Duration Status Cozaar 25 mg Orally Once a day 1 tablet 24h Active Omeprazole 40 mg Orally Once a day before a meal take 1 capsule Jul, Active Simvastatin 40 mg Orally Once a day 1 tablet in the evening 24h Mar, Active Norvasc 10 mg Orally Once a day 1 tablet 24h Active RESULTS Name Result Date Reference Range CBC 2016-10-15 WBC 14.5 3.4-10.8 RBC 4.60 4.14-5.80 Hemoglobin 13.7 12.6-17.7 Hematocrit 40.8 37.5-51.0 MCV 89 79-97 MCH 29.8 26.6-33.0 MCHC 33.6 31.5-35.7 RDW 14.4 12.3-15.4 Platelets 444 150-379 Neutrophils 64 Lymphs 26 Monocytes 9 Eos 1 Basos 0 Immature Cells Neutrophils (Absolute) 9.2 1.4-7.0 Lymphs (Absolute) 3.8 0.7-3.1 Monocytes(Absolute) 1.3 0.1-0.9 Eos (Absolute) 0.1 0.0-0.4 Baso (Absolute) 0.0 0.0-0.2 Immature Granulocytes 0 Immature Grans (Abs) 0.0 0.0-0.1 NR Hematology Comments: LIPID PANEL 2016-10-15 Cholesterol, Total 220 100-199 Triglycerides 227 0-149 HDL Cholesterol 30 >39 VLDL Cholesterol Kaleb 45 5-40 LDL Cholesterol Calc 145 0-99 Comment: CMP 2016-10-15 Glucose, Serum 97 65-99 BUN 11 8-27 Creatinine, Serum 0.92 0.76-1.27 eGFR If NonAfricn Am 89 >59 eGFR If Africn Am 103 >59 BUN/Creatinine Ratio 12 10-22 Sodium, Serum 139 134-144 Potassium, Serum 4.2 3.5-5.2 Chloride, Serum 99 96-106 Carbon Dioxide, Total 24 18-29 Calcium, Serum 9.6 8.6-10.2 Protein, Total, Serum 7.4 6.0-8.5 Albumin, Serum 4.1 3.6-4.8 Globulin, Total 3.3 1.5-4.5 A/G Ratio 1.2 1.1-2.5 Bilirubin, Total 0.2 0.0-1.2 Alkaline Phosphatase, S 113 39-117 AST (SGOT) 15 0-40 ALT (SGPT) 10 0-44 PROCEDURES Procedure Date Ordered Related Diagnosis Body Site COMPLETE CBC W/AUTO DIFF WBC Oct 15, 2016 LIPID PANEL Oct 15, 2016 Office Visit, Est Pt., Level 3 Oct 15, 2016 COMPREHEN METABOLIC PANEL Oct 15, 2016 VENIPUNCT, ROUTINE* Oct 15, 2016 IMMUNIZATIONS No Known Immunizations
--- OUTSIDE RECORDS SUMMARY | 2018-02-04 09:11 | XMS REPORT ---
Author Author MARIALUISA GARCIA [facility] Address [address] [place] [address] Care Team Providers Care Backup Administrative Coordinator Name Role Phone MARIALUISA GARCIA Unavailable PROBLEMS Type Condition ICD9-CM Code KRU49-EG Code Onset Dates Condition Status SNOMED Code Problem Mixed hyperlipidemia E78.2 Active 333494654 Problem Elevated platelet count D47.3 Active 343167747 Problem Hypercholesterolemia E78.0 Active 26171859 Problem Essential (primary) hypertension I10 Active 52164911 Problem Hypertension, essential I10 Active 84463596 Problem Vertigo R42 Active 087254151 ALLERGIES No Information SOCIAL HISTORY Never Assessed PLAN OF CARE VITAL SIGNS MEDICATIONS Medication Instructions Dosage Frequency Start Date End Date Duration Status Simvastatin 40 mg Orally Once a day 1 tablet in the evening 24h Mar, 90 days Active RESULTS No Results PROCEDURES No Known procedures IMMUNIZATIONS No Known Immunizations MEDICAL (GENERAL) HISTORY Type Description Date Medical History hypertension Medical History hyperlipidemia Medical History acid reflux
--- OUTSIDE RECORDS SUMMARY | 2018-02-04 09:11 | XMS REPORT | Continuity of Care Document ---
Author Author [facility] Address Unknown Phone Unavailable Allergies Active Description Code Type Severity Reaction Onset Reported/Identified Relationship to Patient Clinical Status Yes No Known Drug Allergies [id number] Drug Allergy Unknown N/A 03/25/2017 Medications There is no data. Problems Date Dx Coded Attending Type Code Diagnosis Diagnosed By 04/20/2014 WILDER DO, CHINYERE K 401.1 HYPERTENSION, BENIGN ESSENTIAL 04/20/2014 WILDER DO, CHINYERE K 787.1 HEARTBURN 04/20/2014 WILDER DO, CHINYERE K 401.1 HYPERTENSION, BENIGN ESSENTIAL 04/20/2014 WILDER DO, CHINYERE K 787.1 HEARTBURN 04/20/2014 WILDER DO, CHINYERE K 401.1 HYPERTENSION, BENIGN ESSENTIAL 04/20/2014 WILDER DO, CHINYERE K 787.1 HEARTBURN 04/20/2014 WILDER DO, CHINYERE K 401.1 HYPERTENSION, BENIGN ESSENTIAL 04/20/2014 WILDER DO, CHINYERE K 787.1 HEARTBURN 04/20/2014 WILDER DO, CHINYERE K 401.1 HYPERTENSION, BENIGN ESSENTIAL 04/20/2014 IWLDER DO, CHINYERE K 787.1 HEARTBURN 04/20/2014 WILDER DO, CHINYERE K 401.1 HYPERTENSION, BENIGN ESSENTIAL 04/20/2014 WILDER DO, CHINYERE K 787.1 HEARTBURN 04/20/2014 FINN LONDON APRN 401.1 HYPERTENSION, BENIGN ESSENTIAL 04/20/2014 FINN LONDON APRN 787.1 HEARTBURN 04/20/2014 WAI VÁZQUEZ APRN 401.1 HYPERTENSION, BENIGN ESSENTIAL 04/20/2014 WAI VÁZQUEZ APRN E 787.1 HEARTBURN 04/20/2014 WILDER DO, CHINYERE K 401.1 HYPERTENSION, BENIGN ESSENTIAL 04/20/2014 WILDER DO, CHINYERE K 787.1 HEARTBURN 04/20/2014 WILDER DO, CHINYERE K 401.1 HYPERTENSION, BENIGN ESSENTIAL 04/20/2014 WILDER DO, CHINYERE K 787.1 HEARTBURN 04/20/2014 HELLWIG AIR POLLUTION SPECIALIST WAI E 401.1 HYPERTENSION, BENIGN ESSENTIAL 04/20/2014 HELLWIG AIR POLLUTION SPECIALIST, WAI E 787.1 HEARTBURN 04/20/2014 WILDER DO, CHINYERE K 401.1 HYPERTENSION, BENIGN ESSENTIAL 04/20/2014 WILDER DO, CHINYERE K 787.1 HEARTBURN 04/20/2014 WILDER DO, CHINYERE K 401.1 HYPERTENSION, BENIGN ESSENTIAL 04/20/2014 WILDER DO, CHINYERE K 787.1 HEARTBURN 04/20/2014 WILDER DO, CHINYERE K 401.1 HYPERTENSION, BENIGN ESSENTIAL 04/20/2014 WILDER DO, CHINYERE K 787.1 HEARTBURN 04/20/2014 HELLWIG AIR POLLUTION SPECIALISTCHARITO CervantesSIE E 401.1 HYPERTENSION, BENIGN ESSENTIAL 04/20/2014 HELLWIG AIR POLLUTION SPECIALIST, WAI E 787.1 HEARTBURN 04/20/2014 WILDER DO, CHINYERE K 401.1 HYPERTENSION, BENIGN ESSENTIAL 04/20/2014 WILDER DO, CHINYERE K 787.1 HEARTBURN 05/06/2014 WILDER DO, CHINYERE K 272.4 OTHER AND UNSPECIFIED HYPERLIPIDEMIA 05/06/2014 WILDER DO, CHINYERE K NODX NO DIAGNOSIS 05/06/2014 WILDER DO, CHINYERE K 272.4 OTHER AND UNSPECIFIED HYPERLIPIDEMIA 05/06/2014 WILDER DO, CHINYERE K NODX NO DIAGNOSIS 05/06/2014 WILDER DO, CHINYERE K 272.4 OTHER AND UNSPECIFIED HYPERLIPIDEMIA 05/06/2014 WILDER DO, CHINYERE K NODX NO DIAGNOSIS 05/06/2014 WILDER DO, CHINYERE K 272.4 OTHER AND UNSPECIFIED HYPERLIPIDEMIA 05/06/2014 WILDER DO, CHINYERE K NODX NO DIAGNOSIS 05/06/2014 WILDER DO, CHINYERE K 272.4 OTHER AND UNSPECIFIED HYPERLIPIDEMIA 05/06/2014 WILDER DO, CHINYERE K NODX NO DIAGNOSIS 05/06/2014 FINN LONDON APRN 272.4 OTHER AND UNSPECIFIED HYPERLIPIDEMIA 05/06/2014 FINN LONDON APRN NODX NO DIAGNOSIS 05/06/2014 WAI VÁZQUEZ APRN 272.4 OTHER AND UNSPECIFIED HYPERLIPIDEMIA 05/06/2014 WAI VÁZQUEZ APRN E NODX NO DIAGNOSIS 05/06/2014 WILDER DO, CHINYERE K 272.4 OTHER AND UNSPECIFIED HYPERLIPIDEMIA 05/06/2014 WILDER DO, CHINYERE K NODX NO DIAGNOSIS 05/06/2014 WILDER DO, CHINYERE K 272.4 OTHER AND UNSPECIFIED HYPERLIPIDEMIA 05/06/2014 WILDER DO, CHINYERE K NODX NO DIAGNOSIS 05/06/2014 KATHIE MAST WAI E 272.4 OTHER AND UNSPECIFIED HYPERLIPIDEMIA 05/06/2014 KATHIE MAST WAI E NODX NO DIAGNOSIS 05/06/2014 WILDER DO, CHINYERE K 272.4 OTHER AND UNSPECIFIED HYPERLIPIDEMIA 05/06/2014 WILDER DO, CHINYERE K NODX NO DIAGNOSIS 05/06/2014 WILDER DO, CHINYERE K 272.4 OTHER AND UNSPECIFIED HYPERLIPIDEMIA 05/06/2014 WILDER DO, CHINYERE K NODX NO DIAGNOSIS 05/06/2014 WILDER DO, CHINYERE K 272.4 OTHER AND UNSPECIFIED HYPERLIPIDEMIA 05/06/2014 WILDER DO, CHINYERE K NODX NO DIAGNOSIS 05/06/2014 CHARITO VÁZQUEZ APRNSIE E 272.4 OTHER AND UNSPECIFIED HYPERLIPIDEMIA 05/06/2014 KATHIE MAST WAI E NODX NO DIAGNOSIS 05/06/2014 WILDER DO, CHINYERE K 272.4 OTHER AND UNSPECIFIED HYPERLIPIDEMIA 05/06/2014 WILDER DO, CHINYERE K NODX NO DIAGNOSIS 05/25/2014 WILDER DO, CHINYERE K 530.81 ESOPHAGEAL REFLUX 05/25/2014 WILDER DO, CHINYERE K 530.81 ESOPHAGEAL REFLUX 05/25/2014 WILDER DO, CHINYERE K 530.81 ESOPHAGEAL REFLUX 05/25/2014 WILDER DO, CHINYERE K 530.81 ESOPHAGEAL REFLUX 05/25/2014 FINN LONDON APRN 530.81 ESOPHAGEAL REFLUX 05/25/2014 WAI VÁZQUEZ APRN E 530.81 ESOPHAGEAL REFLUX 05/25/2014 WILDER DO, CHINYERE K 530.81 ESOPHAGEAL REFLUX 05/25/2014 WILDER DO, CHINYERE K 530.81 ESOPHAGEAL REFLUX 05/25/2014 BEKAH VÁZQUEZ APRNE E 530.81 ESOPHAGEAL REFLUX 05/25/2014 WILDER DO, CHINYERE K 530.81 ESOPHAGEAL REFLUX 05/25/2014 WILDER DO, CHINYERE K 530.81 ESOPHAGEAL REFLUX 05/25/2014 WILDER DO, CHINYERE K 530.81 ESOPHAGEAL REFLUX 05/25/2014 WAI VÁZQUEZ APRN E 530.81 ESOPHAGEAL REFLUX 05/25/2014 WILDER DO, CHINYERE K 530.81 ESOPHAGEAL REFLUX 08/31/2014 MEÑO SIGALA, CHINYERE K 692.9 DERMATITIS CONTACT UNSPECIFIED 08/31/2014 WILDER DO, CHINYERE K 692.9 DERMATITIS CONTACT UNSPECIFIED 08/31/2014 WILDER , CHINYERE K 692.9 DERMATITIS CONTACT UNSPECIFIED 08/31/2014 WAI VÁZQUEZ APRN 692.9 DERMATITIS CONTACT UNSPECIFIED 08/31/2014 MEÑO SIGALA CHINYERE K 692.9 DERMATITIS CONTACT UNSPECIFIED 04/04/2017 CLAUDETTE HASKINS, TRUMAN A Ot F17.210 NICOTINE DEPENDENCE, CIGARETTES, UNCOMPL 04/04/2017 CLAUDETTE HASKINS, TRUMAN A Ot I10 ESSENTIAL (PRIMARY) HYPERTENSION 04/04/2017 TRUMAN WILKINS MD A Ot N13.2 HYDRONEPHROSIS WITH RENAL AND URETERAL C 04/04/2017 TRUMAN WILKINS MD A Ot R10.31 RIGHT LOWER QUADRANT PAIN 04/04/2017 DEISY WILKINS MDNT A Ot R91.8 OTHER NONSPECIFIC ABNORMAL FINDING OF TELLO Procedures Code Description [place] [address] H PYLORI (IN-HOUSE) 04/20/2014 46350 ROUTINE VENIPUNCTURE 05/06/2014 40765 NO CHARGE 05/06/2014 02116 CBC 05/06/2014 90117 CMP 05/06/2014 08162 LIPID PANEL 05/06/2014 9121090 GFR CALC (RESULT ONLY) 05/06/2014 91555 NO CHARGE 05/25/2014 28617 NO CHARGE 06/22/2014 75404 NO CHARGE 07/12/2014 53194 NO CHARGE 2014 NODX NO DIAGNOSIS 2014 23460 NO CHARGE 07/27/2014 90817 NO CHARGE 08/03/2014 07945 ROUTINE VENIPUNCTURE 08/06/2014 53778 CMP 08/06/2014 97242 LIPID PANEL 08/06/2014 02770 TSH 08/11/2014 11522 NO CHARGE 08/19/2014 85478 NO CHARGE 09/22/2014 55636 NO CHARGE 09/30/2014 22060 NO CHARGE 10/07/2014 Results Test Result Range THYROID ANALYZER - 10/15/17 14:38 TSH 3.17 mIU/L 0.40-4.50 PERIPHERAL BLOOD SMEAR - 10/23/17 13:51 PATHOLOGIST REVIEW OF PERIPHERAL SMEAR NRG Encounters ACCT No. Visit Date/Time Discharge Status Pt. Type Provider Facility Loc./Unit Complaint [id number] 02/09/2015 13:48:00 02/09/2015 23:59:59 CLS Outpatient WILDER DOCHARITOGiselle Alas [id number] 10/07/2014 14:21:00 10/07/2014 23:59:59 CLS Outpatient WAI VÁZQUEZ APRN [id number] 09/30/2014 15:21:00 09/30/2014 23:59:59 CLS Outpatient WILDER DO CHINYERE Alas [id number] 09/22/2014 10:03:00 09/22/2014 23:59:59 CLS Outpatient WILDER DO CHINYERE Alas [id number] 08/31/2014 14:10:00 08/31/2014 23:59:59 CLS Outpatient WILDER DO CHINYERE Alas [id number] 08/19/2014 14:03:00 08/19/2014 23:59:59 CLS Outpatient WAI VÁZQUEZ APRN [id number] 08/11/2014 10:20:00 08/11/2014 23:59:59 CLS Outpatient WILDER DO CHINYERE Alas [id number] 08/06/2014 08:34:00 08/06/2014 23:59:59 CLS Outpatient WILDER DO CHINYERE Alas [id number] 08/03/2014 15:07:00 08/03/2014 23:59:59 CLS Outpatient WAI VÁZQUEZ APRN [id number] 07/27/2014 09:30:00 07/27/2014 23:59:59 CLS Outpatient FINN LONDON APRN Sukumar [id number] 2014 13:44:00 2014 23:59:59 CLS Outpatient WILDER DO CHINYERE Alas [id number] 07/12/2014 08:29:00 07/12/2014 23:59:59 CLS Outpatient WILDER DO CHINYERE Alas [id number] 06/17/2014 14:54:00 06/17/2014 23:59:59 CLS Outpatient WILDER DOCHINYERE [id number] 05/25/2014 15:06:00 05/25/2014 23:59:59 CLS Outpatient WILDER DO CHINYERE Alas [id number] 05/06/2014 10:15:00 05/06/2014 23:59:59 CLS Outpatient WILDER DOCHINYERE [id number] 04/20/2014 15:29:00 04/20/2014 23:59:59 [place] [id number] 01/28/2018 09:20:00 01/28/2018 23:59:59 [facility] [id number] 10/23/2017 13:40:00 Document Registration [id number] 10/15/2017 14:00:00 Document Registration [id number] 03/25/2017 04:15:00 03/25/2017 06:01:00 DIS Outpatient CLAUDETTE HASKINS, TRUMAN Desai [facility] ER AB PAIN [id number] 02/04/2018 11:00:00 PEN Preadmit JOANA GERONIMO [facility] CATH HTN,HL,DIZZINESS
--- OUTSIDE RECORDS SUMMARY | 2018-02-04 09:11 | XMS REPORT ---
Author Author MARIALUISA GARCIA [facility] Address [address] [place] [address] Care Team Providers Care Business Technology Professor Name Role Phone MARIALUISA GARCIA Unavailable PROBLEMS Type Condition ICD9-CM Code [id number] Code Onset Dates Condition Status SNOMED Code Problem Mixed hyperlipidemia E78.2 Active 083415396 Problem Elevated platelet count D47.3 Active 744152791 Problem Hypercholesterolemia E78.0 Active 10327523 Problem Essential (primary) hypertension I10 Active 91040494 Problem Hypertension, essential I10 Active 85230862 Problem Vertigo R42 Active [id number] ALLERGIES No Information SOCIAL HISTORY Never Assessed PLAN OF CARE VITAL SIGNS MEDICATIONS Medication Instructions Dosage Frequency Start Date End Date Duration Status Crestor 20 mg Orally Once a day 1 tablet 24h Active RESULTS No Results PROCEDURES No Known procedures IMMUNIZATIONS No Known Immunizations MEDICAL (GENERAL) HISTORY Type Description Date Medical History hypertension Medical History hyperlipidemia Medical History acid reflux
--- OUTSIDE RECORDS SUMMARY | 2018-02-04 09:11 | XMS REPORT ---
Author Author MARIALUISA GARCIA [facility] Address [address] [place] [address] Care Team Providers Care Scoring Machine Operator Name Role Phone MARIALUISA GARCIA Unavailable PROBLEMS Type Condition ICD9-CM Code TLS99-FS Code Onset Dates Condition Status SNOMED Code Problem Mixed hyperlipidemia E78.2 Active 232088620 Problem Elevated platelet count D47.3 Active 030867450 Problem Hypercholesterolemia E78.0 Active 88883904 Problem Essential (primary) hypertension I10 Active 53413682 Problem Hypertension, essential I10 Active 84679913 Problem Vertigo R42 Active [id number] ALLERGIES No Information SOCIAL HISTORY Never Assessed PLAN OF CARE VITAL SIGNS MEDICATIONS Medication Instructions Dosage Frequency Start Date End Date Duration Status Omeprazole 40 mg Orally Once a day before a meal take 1 capsule Jul, 0 days Active RESULTS No Results PROCEDURES No Known procedures IMMUNIZATIONS No Known Immunizations MEDICAL (GENERAL) HISTORY Type Description Date Medical History hypertension Medical History hyperlipidemia Medical History acid reflux
--- OUTSIDE RECORDS SUMMARY | 2018-02-04 09:11 | XMS REPORT ---
Author Author MARIALUISA GARCIA Organization [facility] Address [address] [place] [address] Care Team Providers Care [employer] Installer Name Role Phone MARIALUISA GARCIA Unavailable PROBLEMS Type Condition ICD9-CM Code VOA89-LU Code Onset Dates Condition Status SNOMED Code Problem Abnormal CBC R79.89 Active 103727252 Problem Essential (primary) hypertension I10 Active 07500850 Problem Lymphocytosis D72.820 Active 56307769 Problem Monocytosis D72.821 Active 79843404 Problem Right leg claudication I73.9 Active 220731537 Problem Mixed hyperlipidemia E78.2 Active 876676277 Problem Vertigo R42 Active 620460077 Problem Hypercholesterolemia E78.0 Active 82216591 Problem Elevated platelet count D47.3 Active 536231532 Problem Hypertension, essential I10 Active 30264959 ALLERGIES No Information ENCOUNTERS Encounter Location Date Diagnosis [place] [address] [id number] [id number] Dec, [address] [id number] Dec, [facility] [address] [id number] [id number] Dec, Hypertension, essential I10 ; Mixed hyperlipidemia E78.2 ; Dyspnea on exertion R06.09 and Tobacco use Z72.[address] [id number] [id number] Dec, [address] [id number] Dec, [facility] [address] [id number] [id number] Nov, Dyspnea on exertion R06.09 ; Vasovagal syncope R55 ; Hypertension , essential I10 ; Mixed hyperlipidemia E78.2 ; Right leg claudication I73.9 and Tobacco use Z72.0 [facility] [id number] [place] [address] [id number] Nov, [place] [address] [id number] Oct, Hypertension, essential I10 [place] [address] [id number] Sep, Abnormal CBC R79.89 ; Monocytosis D72.821 and Lymphocytosis D72.820 [facility] [id number] [place] [address] [id number] Sep, Abnormal CBC R79.89 ; Monocytosis D72.821 and Lymphocytosis D72.820 [place] [id number] [place] [address] [id number] Sep, Hypertension, essential I10 ; Mixed hyperlipidemia E78.2 ; Dizziness R42 ; Tobacco abuse Z72.0 and Tobacco abuse counseling Z71.6 [place] [address] [id number] Sep, Hypertension, essential I10 [place] [address] [id number] Aug, Mixed hyperlipidemia E78.2 [place] [id number] [place] [address] [id number] Jul, [address] [id number] Jun, Hypertension, essential I10 [id number] [place] [address] [id number] Jun, Hypertension, essential I10 [id number] [place] [address] [id number] May, [address] [id number] May, Hypertension, essential I10 and Mixed hyperlipidemia E78.2 [facility] [id number] [place] [address] [id number] Apr, [address] [id number] Mar, [facility] [address] [id number] [place] [id number] Mar, [facility] [address] [id number] [place] [address] Mar, [facility] [address] [id number] [place] [id number] Mar, [facility] [address] [id number] [place] [id number] February, Mixed hyperlipidemia E78.2 [facility] [address] [id number] [place] [id number] February, [facility] [address] [id number] [place] [id number] February, [facility] [address] [id number] [place] [id number] February, Hypertension, essential I10 ; Mixed hyperlipidemia E78.2 and Heartburn R12 [facility] [address] [id number] [place] [id number] February, [facility] [address] [id number] [place] [id number] February, Hypertension, essential I10 [facility] [address] [id number] [place] [id number] Jan, [facility] [address] [id number] [place] [id number] Jan, [facility] [address] [id number] [place] [id number] Dec, Mixed hyperlipidemia E78.2 [facility] [address] [id number] [place] [id number] Nov, Heartburn R12 [facility] [address] [id number] [place] [id number] Sep, [facility] [address] [id number] [place] [id number] Sep, Hypertension, essential I10 ; Mixed hyperlipidemia E78.2 ; Heartburn R12 and Elevated platelet count D47.3 [facility] [address] [id number] [place] [id number] Aug, [facility] [id number] [id number] Jul, [facility] [id number] [place] [address] [id number] Jul, Hypertension, essential I10 ; Vertigo R42 ; Elevated platelet count D47.3 and Elevated glucose level R73.09 [facility] [id number] [place] [address] [id number] Jun, Hypertension, essential I10 ; Hypercholesterolemia E78.0 ; Vertigo R42 ; Heartburn R12 ; Elevated platelet count D47.3 and Elevated glucose level R73.09 [facility] [id number] [place] [address] [id number] Jun, [facility] [address] [id number] [address] May, [facility] [id number] [place] [address] [id number] May, [facility] [id number] [place] [address] [id number] May, [facility] [id number] [place] [address] [id number] Apr, [facility] [id number] [place] [address] [id number] Mar, [facility] [id number] [place] [address] [id number] Mar, [facility] [id number] [place] [address] [id number] Mar, Hypertension, essential I10 and Hypercholesterolemia E78.0 [facility] [id number] [id number] Dec, Hypertension, essential I10 [facility] [id number] [place] [address] [id number] Sep, [facility] [id number] [place] [address] [id number] Sep, Essential (primary) hypertension I10 [facility] [id number] [place] [address] [id number] Sep, Hypertension, essential I10 [facility] [address] [id number] [id number] Sep, Hypertension, essential I10 [facility] [id number] [place] [address] [id number] Aug, [facility] [id number] [place] [address] [id number] Jul, [facility] [id number] [place] [address] [id number] Jul, [facility] [id number] [place] [address] [id number] Jul, Hypertension, essential I10 [facility] [id number] [place] [address] [id number] Jul, [facility] [id number] [place] [address] [id number] Jun, [facility] [id number] [place] [address] [id number] May, [facility] [id number] [place] [address] [id number] Mar, Pharyngitis 462 [facility] [address] [id number] [place] [address] [id number] Mar, [facility] [id number] [place] [address] [id number] Mar, [facility] [id number] [place] [address] [id number] Mar, Right low back pain 724.2 [facility] [id number] [place] [address] [id number] February, [facility] [id number] [place] [id number] February, [facility] [id number] [id number] February, [facility] [id number] [place] [address] [id number] February, [facility] [id number] [place] [address] Jan, [facility] [place] [facility] [address]00565100[place] [address] Jan, [facility] [address] [facility] [id number] [id number] Nov, [facility] [place] [facility] [address] [facility] [id number], [place] [address] Nov, [facility] [address] [facility] [id number] [place] [id number] Sep, [facility] [place] [facility] [address] [facility] [id number], [place] [address] Sep, [facility] [address] [facility] [id number] [place] [id number] Sep, [facility] [place] [facility] [address] [facility] [id number], [place] [address] Sep, [facility] [address] [facility] [id number] [place] [id number] Aug, [facility] [place] [facility] [address]00565100[place], [place] [address] Aug, [facility] [address] [facility] [id number] [id number] Aug, [facility] [place] [facility] [address]00565100[place], [place] [address] Aug, [facility] [place] [facility] [address] [facility] [id number], [place] [address] Aug, [facility] [address] [facility] [id number] [id number] Aug, [facility] [place] [facility] [address] [facility] [id number], [place] [address] Aug, [facility] [address] [facility] [id number] [id number] Jul, [facility] [place] [facility] [address] [facility] [id number], [place] [address] Jul, [facility] [address] [facility] [id number] [place] [id number] Jul, [facility] [address] [id number] [place] [id number] Jul, [facility] [place] [facility] [address] [facility] [id number], [place] [address] Jul, [facility] [place] [facility] [address] [facility] [id number], [place] 446976- [address] Jul, [facility] [address] [facility] [id number] [place] [id number] Jul, [facility] [place] [facility] [address] [facility] [id number], [place] [address] Jul, [facility] [place] [facility] [address] [facility] [id number], [place] [address] Jul, [facility] [address] [facility] [id number] [place] [id number] Jul, [facility] [address] [facility] [id number] [place] [id number] Jul, [facility] [place] [facility] [address] [facility] [id number][place] [address] Jul, [facility] [address] [facility] [id number] [id number] Jun, [facility] [place] [facility] [address] [facility] [id number], [place] [address] 30 Jun, 2014 [facility] [address] [facility] [id number] [place] [id number] Jun, [facility] [place] [facility] [address] [facility] [id number], [place] [address] Jun, [facility] [address] [facility] [id number] [place] [id number] 16 Jun, 2014 [facility] [place] [facility] [address] [facility] [id number], [place] [address]- [address] 16 Jun, 2014 [facility] [place] [facility] [address] [facility] [id number], [place] [address] 15 Jun, 2014 [facility] [address] [facility] [id number] [place] [id number] Jun, [facility] [address] [id number] [place] [id number] Jun, [facility] [place] [facility] [address] [id number] [place] [address]- [address] Jun, [facility] [address] [id number] [place] [id number] Jun, [facility] [place] [facility] [address] [facility] [id number] [place] [address]- [address] Jun, [facility] [address] [id number] [place] [id number] May, [facility] [place] [facility] [address] [facility] [id number] [place] [address] May, [facility] [address] [facility] [id number] [place] [id number] May, [facility] [place] [facility] [address] [facility] [id number] [place] [address]- [address] May, [facility] [address] [facility] [id number] [place] [id number] Apr, [facility] [place] [facility] [address] [facility] [id number] [place] [address]- [address] Apr, [facility] [address] [facility] [id number] [place] [id number] Apr, [facility] [place] [facility] [address] [facility] [id number] [place] [address]- [address] Apr, [facility] [address] [id number] [place] [id number] Apr, [facility] [place] [facility] [address] [facility] [id number] [place] [address]- [address] Apr, [facility] [address] [id number] [place] [id number] Apr, [facility] [place] [facility] [address] [facility] [id number] [place] [address]- [address] Apr, [facility] [address] [id number] [place] [id number] Mar, [facility] [place] [facility] [address] [facility] [id number] [place] [address] Mar, IMMUNIZATIONS No Known Immunizations SOCIAL HISTORY Never Assessed REASON FOR VISIT med refill PLAN OF CARE VITAL SIGNS MEDICATIONS Medication Instructions Dosage Frequency Start Date End Date Duration Status Hydrochlorothiazide 25 MG Orally Once a day 1 tablet in the morning 24h Mar, 0 days Active RESULTS No Results PROCEDURES No Known procedures INSTRUCTIONS MEDICATIONS ADMINISTERED No Known Medications MEDICAL (GENERAL) HISTORY Type Description Date Medical History hypertension Medical History hyperlipidemia Medical History acid reflux
[2018-02-04] MEDS ORDERED: HEParin (CATH LAB) 2,000 ML IV ONE (09:13)
[2018-02-04] MEDS ORDERED: NS IV 1000 ML 1,000 ML ONE (09:13)
[2018-02-04] MEDS ORDERED: NS IV 1000 ML 1,000 ML IV SCH ×3 (09:20→12:11)
[2018-02-04 10:04] LABS: INR 1.1 (0.8-1.4); PROTHROMBIN TIME PATIENT 14.4 SEC (12.2-14.7)
[2018-02-04 10:12] LABS: ALANINE AMINOTRANSFERASE 13 U/L (0-55); ALKALINE PHOSPHATASE 83 U/L (40-136); BILIRUBIN,TOTAL 0.5 MG/DL (0.1-1.0); BUN/CREATININE RATIO 10; CALCIUM 9.4 MG/DL (8.5-10.1); CARBON DIOXIDE 27 MMOL/L (21-32); CHLORIDE 104 MMOL/L (98-107); CHOLESTEROL 131 MG/DL (< 200); CREATININE SERUM 1.21 MG/DL (0.60-1.30); GFR ESTIMATED > 60; GLUCOSE 111 MG/DL (70-105); HDL CHOLESTEROL 24 MG/DL (40-60); SODIUM 141 MMOL/L (135-145); TOTAL PROTEIN 8.1 GM/DL (6.4-8.2); TRIGLYCERIDES 177 MG/DL (<150); VLDL CHOLESTEROL 35 MG/DL (5-40)
[2018-02-04] MEDS ORDERED: AMLO10TA2 PO (10:15)
[2018-02-04] MEDS ORDERED: ASPI-983 PO (10:15)
[2018-02-04] MEDS ORDERED: AMOX1TAB12 PO (10:15)
[2018-02-04] MEDS ORDERED: ROSU20TA PO (10:15)
[2018-02-04] MEDS ORDERED: OMG1KC PO (10:15)
[2018-02-04] MEDS ORDERED: FLUT16SP22 NS (10:15)
[2018-02-04] MEDS ORDERED: OMEP40CA36 PO (10:15)
[2018-02-04] MEDS ORDERED: METO-370 PO (10:15)
[2018-02-04] MEDS ORDERED: LOSA100T28 PO (10:15)
[2018-02-04 10:44] LABS: BASOPHILS % (AUTO) 0 % (0-10); EOSINOPHILS # (AUTO) 0.1 10^3/uL (0.0-0.3); EOSINOPHILS % (AUTO) 0 % (0-10); HEMATOCRIT 39 % (40-54); HEMOGLOBIN 13.1 G/DL (13.3-17.7); LYMPHOCYTES # (AUTO) 3.1 X 10^3 (1.0-4.0); LYMPHOCYTES % (AUTO) 23 % (12-44); MEAN CORPUSCULAR HEMOGLOBIN 30 PG (25-34); MEAN CORPUSCULAR HGB CONC 34 G/DL (32-36); MEAN CORPUSCULAR VOLUME 88 FL (80-99); MEAN PLATELET VOLUME 10.3 FL (7.4-10.4); MONOCYTES # (AUTO) 1.4 X 10^3 (0.0-1.0); MONOCYTES % (AUTO) 11 % (0-12); NEUTROPHILS # (AUTO) 8.9 X 10^3 (1.8-7.8); NEUTROPHILS % (AUTO) 66 % (42-75); PLATELET COUNT 422 10^3/uL (130-400); RED CELL DISTRIBUTION WIDTH 13.8 % (10.0-14.5); WHITE BLOOD COUNT 13.5 10^3/uL (4.3-11.0)
[2018-02-04] MEDS ORDERED: LIDOCAINE 1% INJ 50 ML (XYLOCAINE) VIAL ONE (10:50)
[2018-02-04] MEDS ORDERED: MIDAZOLAM 5 MG/5 ML (VERSED) VIAL ONE (10:50)
[2018-02-04] MEDS ORDERED: fentaNYL INJECTION 100 MCG/2 ML AMP ONE (10:50)
[2018-02-04 11:19] LABS: BAND NEUTROPHILS 0 %; NEUTROPHILS % (MANUAL) 61 %
[2018-02-04 11:20] LABS: BASOPHILS % (MANUAL) 0 %; EOSINOPHILS % (MANUAL) 1 %; LYMPHOCYTES % (MANUAL) 27 %; MONOCYTES % (MANUAL) 11 %; RBC MORPH NORMAL
[2018-02-04] MEDS ORDERED: POTASSIUM CL 10MEQ/50ML IVPB 50 ML IV ONE (11:22)
--- NOTE | 2018-02-04 11:30 | Cardiac Procedure Note-CS/ASA ---
Pre-Procedure Note Pre-Op Procedure Note H&P Reviewed The H&P was reviewed, patient examined and no changes noted. Date H&P Reviewed: Feb 04, 2018 Time H&P Reviewed: 11:30 Conscious Sedation Pre-Proced Time Reviewed: 11:30 ASA Class: 3 Airway Mallampati Classification: (tunica-biloxi appropriate class) I. II. III, IV Lungs Heart ASA score ASA 1: a normal healthy patient ASA 2: a patient with a mild systemic disease (mid diabetes, controlled hypertension, obesity ASA 3: a patient with a severe systemic disease that limits activity (angina , COPD, prior Myocardial infarction) ASA 4: a patient with an incapacitating disease that is a constant threat to life (CHF, renal failure) ASA 5: a moribund patient not expected to survive 24 hrs. (ruptured aneurysm) ASA 6: a declared brain patient whose organs are being harvested. For emergent operations, add the letter E after the classification Grade 2 Sedation Plan: Analgesia, Amnesia, Plan communicated to team members, Discussed options with patient/fam, Discussed risks with patient/fam Note The patient is an appropriate candidate to undergo the planned procedure, sedation, and anesthesia. The patient immediately re-assessed prior to indication. LILIANA THOMPSON MD FACP FAC CCDS Feb 04, 2018 11:30
--- NOTE | 2018-02-04 12:14 | Discharge Inst-Cardiology ---
Discharge Inst-Cardiac Discharge Medications Continued Medications: Amlodipine Besylate (Amlodipine Besylate) 10 Mg Tablet 5 MG PO HS, TAB TAKES 1/2 (10MG) TABLET Amoxicillin/Potassium Clav (Amox Tr-K Clv 875-125 mg Tab) 1 Each Tablet 1 TAB PO BID, TAB 10 DAY SUPPLY FILLED 01-28- Aspirin (Aspirin EC) 81 Mg Tablet.dr 81 MG PO DAILY, TAB Fluticasone Propionate (Fluticasone Propionate) 16 Gm [place].susp 1 SPRAY NS DAILY, SPRAY SHORT TERM MEDICATION FILLED 01-28-18 Losartan Potassium (Losartan Potassium) 100 Mg Tablet 100 MG PO DAILY, TAB Metoprolol Succinate (Metoprolol Succinate) 50 Mg Tab.er.24h 100 MG PO DAILY, TAB TAKES 2 (50MG) TABLETS [place] 3 Polyunsat Fatty Acids (Fish Oil 1,000 mg Capsule) 1,000 Mg Cap 2000 MG PO DAILY, CAP TAKES 2 (1000MG) CAPSULES Omeprazole (Omeprazole) 40 Mg Capsule.dr 40 MG PO DAILY, CAP Rosuvastatin Calcium (Crestor) 20 Mg Tablet 20 MG PO DAILY, TAB Patient Instructions Patient Instructions: No smoking LILIANA THOMPSON MD FACP FAC CCDS Feb 04, 2018 12:14
--- NOTE | 2018-02-04 12:14 | Discharge Inst-Post CATH ---
Discharge Inst-CATH Post Cardiac Cath D/C Inst Follow Up/Plan F/u with Dr Fontana in 3-4 weeks No smoking CARDIAC CATH DISCHARGE INSTRUCTIONS *Hold Metformin for 48 hours post heart cath. ACTIVITY * Go Home directly and rest. * Limit activity of the leg (or wrist if it was used) for 7 days including aerobics, swimming, jogging, bicycling, etc. * Restrict stair-climbing for 7 days if possible, if not, climb up with your non -cath leg, then bring together on the same step. * Avoid lifting, pushing, pulling or excessive movement of the affected extremity for 7 days. * Customary sexual activity may be resumed after 2 days-use caution not to use a position that strains or causes pain to the affected extremity. * No driving for 24 hours. * NO SMOKING. * Avoid straining for bowel movements for 7 days. * Gentle walking on level ground is allowed. * Returning to work will depend on the type of procedure and the results. Your doctor will discuss this with you. CALL YOUR DOCTOR FOR ANY OF THE FOLLOWING: *If bleeding from the puncture site occurs- Apply gentle pressure to site with clean cloth and call your doctor or EMS. * If a knot or lump forms under the skin, increases in size, or causes pain. * If bruising appears to be worsening or moving further down your leg instead of disappearing. * Temperature above 101 F. CARE OF YOUR GROIN INCISION; * Bruising or purple discoloration of the skin near the puncture site is common. * You may shower only, no bathtub bathing for 5 days. Be careful to avoid slipping as your leg may feel stiff. * If a closure device was used on your femoral artery, please see the attached guide regarding care of the device and your leg. * REMOVE the dressing from your groin the next day after your procedure in the shower. CARE OF YOUR WRIST INCISION; * Bruising or purple discoloration of the skin near the puncture site is common. * You may shower. * DO NOT submerge wrist. * Remove dressing in 24 hours. LILIANA FONTANA MD [facility] CCDS Feb 04, 2018 12:14
[2018-02-04] MEDS ORDERED: PATIENT MAY USE OWN MEDS, ALL PO SCH (12:15)
--- NOTE | 2018-02-05 03:22 | CARDIAC CATHETERIZATION ---
DATE OF SERVICE: 02/04/2018 CARDIAC CATHETERIZATION REPORT HISTORY OF PRESENT ILLNESS: The patient is a 62-year-old man with multiple coronary artery disease risk factors, who has had a history of syncope, as well. He has hyperlipidemia, hypertension, chronic tobacco use, and symptoms of leg claudication. Cardiac catheterization was carried out today after having obtained an informed consent. PROCEDURE: He was brought to the cardiac catheterization laboratory in a fasting state. Right groin was prepared and draped in usual sterile fashion. A 1% lidocaine was used for local anesthesia. Modified Seldinger technique was used to advance a 5-Estonian sheath in right femoral artery. A 5-Estonian JL4 catheter was used for left coronary angiography, 5-Estonian JL4 catheter was used for right coronary angiography. A 5-Estonian pigtail catheter was used for left heart catheterization, left ventricular angiography following completion of the diagnostic procedure and removal of the catheters, angiography of the right femoral artery was carried out through the sheath. Mynx was used to achieve hemostasis. He tolerated the procedure well. CORONARY ANGIOGRAPHY: Diffuse mild to moderate coronary calcification and coronary plaque was seen involving all coronary vessels. There are multiple 30 to 40% stenosis in the left anterior descending artery. Right coronary artery is dominant. LEFT VENTRICULAR ANGIOGRAPHY: Left ventricular angiography was carried out in right anterior oblique projection. Global left ventricular systolic function normal. No regional wall motion abnormalities were seen. Left ventricular ejection fraction is 60 to 65%. There is no significant mitral regurgitation. HEMODYNAMICS: Left ventricular end diastolic pressure is 16 mmHg. There is no significant pressure gradient on pullback across the aortic valve. Ascending aortic pressure is 137/65 with a mean of 88 mmHg. CONCLUSIONS: 1. Mild to moderate coronary artery disease without evidence of significant obstructive coronary artery disease. 2. Normal global left ventricular systolic function with an ejection fraction of 60 to 65%. 3. No significant mitral regurgitation. 4. Mild to moderate elevation of left ventricular end-diastolic pressure. DISCUSSION AND RECOMMENDATIONS: Based on the results of the study, it appears appropriate to continue a conservative approach. Risk factor modification has been reviewed. Outpatient followup is advised. He has been advised to quit smoking immediately and completely. Job ID: [id number] DocumentID: [id number] Dictated Date: 02/04/2018 11:58:25 Sped Teacher Date: 02/04/2018 14:59:25 Dictated By: LILIANA THOMPSON MD, MA, FACP, FACC,
== END 2018-02-04 15:45 | disposition home or self-care (01) ==
LOC: CATH 09:03 → SURG 12:08 → CATH 15:45
PROVIDERS: ATTEND Nurse Practitioner Family
DX: I25.10 Atherosclerotic heart disease of native coronary artery without angina pectoris (principal); I10 Essential (primary) hypertension; E78.2 Mixed hyperlipidemia; F17.210 Nicotine dependence, cigarettes, uncomplicated; I73.9 Peripheral vascular disease, unspecified; R55 Syncope and collapse; K21.9 Gastro-esophageal reflux disease without esophagitis; Z79.82 Long term (current) use of aspirin; Z79.899 Other long term (current) drug therapy
CPT/HCPCS: 36415; 80053; 80061; 85007; 85027; 85610; 85730; 87081; 93458